=== PATIENT | female | born 1980 | race Two or more races ===

== ENCOUNTER 2024-11-28 06:43 | Emergency (ER) | payer MEDICAID, SELFPAY ==
[2024-11-28 06:44] VITALS: BMI 25.4
[2024-11-28 07:27] VITALS: BP 99/66; PULSE 89; RESP 22; TEMP 36.9; O2SAT 95; BMI 26.1
--- NOTE | 2024-11-28 07:35 | EDNOTE_ITS ---
Upper Respiratory Inf. RME/HPI General Chief Complaint: Flu Like Symptoms Stated Complaint: COUGH X8 DAYS Time Seen by Provider: 11/28/24 06:51 Arrival date/time: 11/28/24 06:43 This is a 44-year-old female that comes into the emergency room with complaints of cough and difficulty breathing for the past 8 days. Patient was placed on antibiotics and is still currently on antibiotics right now. patient denies fever or chills. Patient denies any past medical history. Patient states cough will not stop despite medication. Related Data Home Medications ?Medication ?Instructions ?Recorded ?Confirmed levothyroxine 88 mcg tablet 88 mcg PO QDAY 11/17/23 Previous Rx's ?Medication ?Instructions ?Recorded docusate sodium 100 mg capsule 100 mg PO BID #40 caps 11/18/23 (Colace) hydrocodone 5 mg-acetaminophen 325 1 tab PO Q6H PRN pa in (scale score 11/18/23 mg tablet 7-10) #20 tabs ibuprofen 600 mg tablet 600 mg PO Q8H PRN pain (scal e 11/18/23 score 4-6) #15 tabs albuterol sulfate 90 mcg/actuation 2 puff inhalation Q ID PRN 11/28/24 aerosol inhaler shortness of breath or wheez ing #8.5 grams ibuprofen 800 mg tablet 800 mg PO Q6H PRN pain #14 t abs 11/28/24 prednisone 20 mg tablet 20 mg PO BID 5 days #10 tabs 11/28/24 promethazine-DM 6.25 mg-15 mg/5 mL 5 ml PO Q6H PRN cou gh #240 mL 11/28/24 oral syrup Allergies Allergy/AdvReac Type Severity Reaction Status Date / Time No Known Allergies Allergy Verified 11/28/24 06:44 Review of Systems Review of Systems Systems Reviewed: All systems reviewed, normal except as documented Past Medical History Past Medical History Comments PMH COMMENT: Denies ED Exam Narrative Physical exam: VITAL SIGNS: Reviewed. GENERAL APPEARANCE: Alert and interactive, follows commands, no acute distress HEAD AND FACE: Non-traumatic. ENT: PERRL, pink conjunctivitis, eyelid no trauma, Mucous membrane moist. NECK: Supple, nontender, no nuchal rigidity. CHEST: No tenderness, no crepitus, no paradoxical movement, no retractions. LUNGS: expiratory wheezing HEART: Regular rate, regular rhythm, no murmur, no gallops. ABDOMEN: Soft, nondistended, no guarding, nontender, no rebound, no masses, NEUROLOGICAL: Gross motor function intact sensory function intact, Appropriate for age. MUSCULOSKELETAL: low back nontender, full range of motion. EXTREMITIES: No redness no swelling no skin breakdown on bilateral foot and leg. Distal neurovascular status intact bilateral foot SKIN: Color pink, dry, no rash, no lacerations, no abrasions, no contusions. Course Orders Category Date Time Status ALBUTEROL RT 0.5ml [Proventil Rt 0.5ml] Med 11/28/24 07:34 Discontinued 2.5 mg INH X1 ONE Dexamethasone Inj [Decadron Inj] Med 11/28/24 07:34 Discontinued 10 mg PO X1 ONE Ibuprofen Tab [Motrin Tab] Med 11/28/24 07:34 Discontinued 800 mg PO X1 ONE Promethazine/Dextromethorph [Phenergan Dm Syrup] Med 11/28/24 07:34 Discontinued 5 ml PO X1 ONE Sodium Chloride Rt Aria 0.9% [NS Rt Aria 0.9%] Med 11/28/24 07:34 Active 3 ml INH PRN PRN Vital Signs Vital signs: Vital Signs Temperature 98.5 F 11/28/24 07:27 Pulse Rate 89 11/28/24 07:27 Respiratory Rate 22 H 11/28/24 07:27 Blood Pressure 99/66 11/28/24 07:27 Pulse Oximetry (%) 95 11/28/24 07:27 Oxygen Delivery Method Room Air 11/28/24 07:27 Upper Respiratory Infection MDM Narrative MDM Narrative:: Patient given some Decadron, ibuprofen, promethazine cough medicine, albuterol. Patient feels better after medication. I explained to patient that I will send her home with some ibuprofen, Promethazine DM, and some steroids. I will also send patient home with an inhaler. I instructed patient at length to follow-up with her primary provider in 1 to 2 days. come back to the emergency room if symptoms change or worsen Medications / Prescriptions Medication administrations:: Medication Administration History Sodium Chloride (Sodium Chloride Rt Aria 0.9% 3 Ml Nebu) 3 ml INH PRN PRN PRN Reason: SOLN Stop: 12/28/24 07:33 Last Admin: 11/28/24 07:43 Dose: 3 ml Documented By: [facility] Discontinued Medications Albuterol (Albuterol Rt 2.5 Mg/0.5 Ml Nebu) 2.5 mg INH X1 ONE Stop: 11/28/24 07:35 Last Admin: 11/28/24 07:43 Dose: 2.5 mg Documented By: [facility] Dexamethasone Sodium Phosphate (Dexamethasone Sod Phos Inj 10 Mg/Ml Vial) 10 mg PO X1 ONE Stop: 11/28/24 07:35 Last Admin: 11/28/24 08:02 Dose: 10 mg Documented By: [facility](2) Comments: PO GIVEN ORAL Ibuprofen (Ibuprofen Tab 400 Mg Tablet) 800 mg PO X1 ONE Stop: 11/28/24 07:35 Last Admin: 11/28/24 08:01 Dose: 800 mg Documented By: [facility](2) Promethazine HCl/Dextromethorphan (Promethazine/Dm Syrup 5 Ml Dose) 5 ml PO X1 ONE; Protocol Stop: 11/28/24 07:35 Last Admin: 11/28/24 08:01 Dose: 5 ml Documented By: [facility](2) Discharge Plan Plan Patient Disposition: HOME (Self Care) Patient condition on transfer: Stable Prescriptions/Referrals Prescriptions/Med Rec: New ibuprofen 800 mg tablet 800 mg PO Q6H PRN (Reason: pain) Qty: 14 0RF albuterol sulfate 90 mcg/actuation HFA aerosol inhaler 2 puff inhalation QID PRN (Reason: shortness of breath or wheezing) Qty: 8.5 0RF promethazine-DM 6.25-15 mg/5 mL syrup 5 ml PO Q6H PRN (Reason: cough) Qty: 240 0RF prednisone 20 mg tablet 20 mg PO BID 5 Days Qty: 10 0RF No Action levothyroxine 88 mcg Tablet 88 mcg PO QDAY docusate sodium [Colace] 100 mg capsule 100 mg PO BID Qty: 40 0RF ibuprofen 600 mg tablet 600 mg PO Q8H PRN (Reason: pain (scale score 4-6)) Qty: 15 0RF hydrocodone-acetaminophen 5-325 mg tablet 1 tab PO Q6H MDD 4 PRN (Reason: pain (scale score 7-10)) Qty: 20 0RF Referrals: Enrique Anne MD [Primary Care Provider] - In 1 week Problem List Clinical Impression: RAD (reactive airway disease), URI (upper respiratory infection), Cough Patient/Caregiver Discharge Instructions Discharge Activity: activity as tolerated Education Materials: ED Inhaler Use, ED URI, Viral W/ Wheezing (Adult) Additional Instructions: Lesia un julian con [facility] en las proximas 24-48 horas. Regrese a la joanie de emergencias si hay evidencia de que los signos o sintomas empeoran. Continue taking antibiotics. Stop taking the cough pills that was prescribed previously. Follow-up with primary provider in 1 to 2 days Print Language: Guyanese Stand Alone Forms: Ria Award Info., Patient Portal Info Letter PA/SPANISHER Supervising Physician PA/SPANISHER Supervising Physician: [email or web address]
[2024-11-28 07:43] VITALS: PULSE 87
[2024-11-28] MEDS: ALBUTEROL RT 2.5 MG/0.5 ML NEBU INH (07:43)
[2024-11-28] MEDS: SODIUM CHLORIDE RT SOL 0.9% 3 ML NEBU INH (07:43)
[2024-11-28 07:47] VITALS: PULSE 88; RESP 20; O2SAT 99
[2024-11-28] MEDS: IBUPROFEN TAB 400 MG TABLET 800 MG PO (08:01)
[2024-11-28] MEDS: PROMETHAZINE/DM SYRUP 5 ML DOSE PO (08:01)
[2024-11-28] MEDS: DEXAMETHASONE SOD PHOS INJ 10 MG/ML VIAL PO (08:02)
== END 2024-11-28 08:48 | disposition home or self-care (01) ==
PROVIDERS: Emergency Provider Emergency Medicine; PCP Family Medicine
DX: J06.9 Acute upper respiratory infection, unspecified (principal); J45.909 Unspecified asthma, uncomplicated
CPT/HCPCS: 94640; 99283; J1100; A9270